=== PATIENT | female | born 1965 | race Caucasian/White ===

== ENCOUNTER 2017-01-09 07:06 | Emergency (ER) | payer MEDICAID ==
[~2017-01-09 07:06] MED LIST: DILT240C93 PO; WARF7.5 PO
== END 2017-01-09 07:44 | disposition left against medical advice (07) ==
LOC: EMS 07:08
DX: S62.90XA Unspecified fracture of unspecified hand, initial encounter for closed fracture (principal); X58.XXXA Exposure to other specified factors, initial encounter; Y93.89 Activity, other specified; Y92.89 Other specified places as the place of occurrence of the external cause; Y99.8 Other external cause status; Z53.21 Procedure and treatment not carried out due to patient leaving prior to being seen by health care provider